=== PATIENT | male | born 1965 | race Two or more races ===

== ENCOUNTER 2018-11-25 15:27 | Inpatient (IN) | payer MEDICAID, OTHER ==
[~2018-11-25] VITALS: Ht 175.3 cm; Wt 64.6 kg
[2018-11-25 18:00] VITALS: BP 113/71
--- NOTE | 2018-11-25 18:00 | NUR ---
IMMERSION METALCLEANER NOTES PATIENT DIRECT ADMIT FROM [facility] 54 Y/OLD MALE TELE ON Dx. OF GI BLEEDING. TELE MONITOR ON SR98. PATIENT A/O X4, NO ACUTE RESPIRATORY DISTRESS. PATIENT REFUSED PAIN AT THIS TIME. AMBULATORY SELF CARE. PATIENT DENIED NAUSEA/VOMITING. V/S TAKEN BP 131/71, P-100, R-18, T-98.6, O2-100 ROOM AIR. IV ACCESS ON LEFT HAND #20 GAUGE. SKIN ASSESSMENT DONE PICTURE TAKEN. NEEDS ATTENDED AND ANTICIPATED. CALL LIGHT WITHIN TO REACH. DIXON MONZON AWARE OF NEW PATIENT AND MEDICATION. CONTINUED MONITORING.
--- NOTE | 2018-11-25 18:30 | NUR ---
rn notes endorsed oncoming nurse follow plan of care.
--- NOTE | 2018-11-25 19:32 | NUR ---
RN OPENING NOTES RECEIVED PATIENT AWAKE, RESTING COMFORTABLY IN BED. PATIENT IS A/O X 4. IRISH SPEAKING. NO SIGNS OF RESPIRATORY DISTRESS. PATIENT DENIES SOB. PATIENT DENIES PAIN OR DISCOMFORT AT THIS TIME. IV SITE PATENT AND INTACT. ON ROOM AIR. SAFETY PRECAUTIONS IMPLEMENTED. CALL LIGHT WITHIN REACH. WILL CONTINUE TO MONITOR PATIENT.
[2018-11-25 20:00] VITALS: BP 116/67
--- NOTE | 2018-11-25 22:59 | NUR ---
RN NOTES PATIENT STATES HE DOES NOT TAKE ANY HOME MEDICATIONS. HE DOES NOT RECALL ANY MEDICATIONS TAKEN REGULARLY. PATIENT IS A/O X 4.
--- NOTE | 2018-11-25 23:13 | NUR ---
RN NOTES AWAITING ORDERS FOR PATIENT. AWARE.
[2018-11-26] VITALS: BP 119/78
[2018-11-26] MEDS ORDERED: ACETAMINOPHEN 325 MG TABLET PO PRN
[2018-11-26] MEDS ORDERED: MAG HYDROX/AL HYDROX/SIMETH 30 ML UDC PO PRN
[2018-11-26] MEDS ORDERED: ONDANSETRON HCL/PF 4 MG/2 ML VIAL IVP PRN
[2018-11-26] MEDS ORDERED: MAGNESIUM HYDROXIDE 30 ML UDC PO PRN
[2018-11-26] MEDS ORDERED: HYDROCODONE/APAP 5/325MG 1 EACH TABLET PO PRN
[2018-11-26] MEDS ORDERED: ZOLPIDEM TARTRATE 5 MG TABLET PO PRN
[2018-11-26] MEDS ORDERED: Z GUARD REMEDY 2 OZ OINT TP PRN
[2018-11-26] MEDS: IV D5/0.45 NACL 1,000 ML IV PRN ×2 (00:39→22:19)
[2018-11-26] MEDS ORDERED: PANTOPRAZOLE 80 MG in IV NS 0.9% 500 ML IV PRN (01:00)
[2018-11-26] MEDS ORDERED: OCTREOTIDE 1,250 MCG in IV NS 0.9% 247.5 ML IV PRN (01:00)
[2018-11-26] MEDS: PROPRANOLOL HCL 10 MG TABLET PO SCH ×3 (02:34→21:10)
[2018-11-26 02:35] VITALS: BP 132/85
--- NOTE | 2018-11-26 02:38 | NUR ---
RN NOTES PATIENT REFUSED PROPANOLOL LAST MINUTE. DISCUSSED WITH PATIENT THE RISKS AND BENEFITS OF NOT TAKING MEDICATION. LAST VITALS PRIOR TO SCANNING MEDICATION: BP 132/85, PULSE 90, O2 SAT 99%, RR 18, TEMP 98.6. WILL CONTINUE TO MONITOR PATIENT.
[2018-11-26 04:00] VITALS: BP 127/73
--- NOTE | 2018-11-26 06:19 | NUR ---
RN CLOSING NOTES PATIENT IS AWAKE IN BED, RESTING COMFORTABLY. PATIENT IS A/O X 4. NO SIGNS OF RESPIRATORY DISTRESS. DENIES SOB. PATIENT DENIES ANY PAIN OR DISCOMFORT AT THIS TIME. PATENT HAS NO COMPLAINTS OF NAUSEA OR VOMITING. PATIENT IS AMBULATORY. PATIENT ABLE TO VERBALIZE HE VOIDED TWICE LAST NIGHT VIA TOILET. PATIENT IS NPO. PATIENT IS AWARE OF DIET STATUS. IV ACCESS PATENT AND INTACT. CURRENT TELEMETRY READING WAS SINUS RHYTHM 85. ALL NEEDS ATTENDED TO. SAFETY PRECAUTIONS IMPLEMENTED. CALL LIGHT WITHIN REACH. WILL ENDORSE TO AM SHIFT FOR CONTINUITY OF CARE.
[2018-11-26 07:03] LABS: CALCIUM, SERUM 7.8 mg/dL (8.5-10.1); CREATININE 0.8 mg/dL (0.6-1.3); MAGNESIUM 1.7 mg/dL (1.8-2.4); PHOSPHORUS 4.2 mg/dL (2.5-4.9); POTASSIUM 3.4 mmol/L (3.5-5.1)
[2018-11-26 07:16] LABS: BASOPHILS % (AUTO) 0.8 % (0.0-2.0); EOSINOPHILS % (AUTO) 4.2 % (0.0-6.0); HEMATOCRIT 25 % (39-51); HEMOGLOBIN 8.4 g/dL (13.5-17.5); LYMPHOCYTES # (AUTO) 1.2 /CMM (0.8-4.8); MEAN CORPUSCULAR HGB CONC 34 g/dl (31.0-36.0); MEAN CORPUSCULAR VOLUME 85 fL (80-96); MONOCYTES # (AUTO) 0.4 /CMM (0.1-1.30); MONOCYTES % (AUTO) 14.8 % (2.0-12.0); NEUTROPHILS % (AUTO) 36.2 % (43.0-81.0); RED BLOOD CELL COUNT(AUTO) 2.94 MIL/uL (4.5-6.0); WHITE BLOOD COUNT (AUTO) 2.8 K/uL (4.3-11.0)
[2018-11-26 07:27] LABS: PLATELET COUNT (AUTO) 45 /CMM (150-450)
--- NOTE | 2018-11-26 07:30 | NUR ---
membership counselor Opening Note Patient currently resting in bed with eyes closed in Semi-Fowlers position, no acute distress noted. Easily arousable to verbal stimuli. Alert and oriented to x 4. Respirations even and unlabored on room air. External youth nutritional monitor in place: current rhythm normal sinus at 88 bpm. Peripheral IV access to the right hand 20 gauge, intact, patent and infusing D5 0.45% NS at 75 ml/hr. as ordered. No bleeding noted. NPO since midnight pending GI consult. Safety and fall precautions in place: bed in lowest and locked position, side rails up x2, bed alarm on, call light and personal possessions in reach, room well lit, floor clutter-free. Updated patient on plan of care, verbalized understanding. Patient currently clean, dry and comfortable.Will continue to monitor and intervene as needed.
[2018-11-26 08:00] VITALS: BP 134/78
[2018-11-26 08:35] LABS: BAND % (MANUAL) 1 % (0.0-5.0); EOSINOPHILS % (MANUAL) 6 % (0-4); LYMPHOCYTES % (MANUAL) 41 % (16-48); MONOCYTES % (MANUAL) 6 % (0-11.0); NEUTROPHILS % (MANUAL) 46 (42-76)
[2018-11-26] MEDS: NEXIUM 40 MG VIAL IV SCH ×2 (09:17→21:10)
[2018-11-26] MEDS ORDERED: POTASSIUM CL. PREMIX PERIPHER. 50 ML IV SCH (09:33)
[2018-11-26] MEDS ORDERED: METOCLOPRAMIDE HCL 10 MG/2 ML VIAL IV STA (09:43)
--- NOTE | 2018-11-26 10:52 | NUR ---
weather reporter Notes Per Dr. Barrera, patient to have EGD procedure at 11:00 AM. Patient NPO since midnight. Informed consent obtain for anethesia and procedure, signed and placed in chart. Type and Screen completed, pre-operative checklist completed. Pre-operative medication ordered by given as ordered. Per Pharmacy, pre-operative medication of Erythromycin unavailable to give. Noted and informed pre-op nurse during report. Report given to staff per protocol, patient transferred to operating room in stable condition.
[2018-11-26] MEDS ORDERED: ERYTHROMYCIN 250 MG in IV NS 0.9% 100 ML IV ONE ×4 (11:00)
[2018-11-26 12:00] VITALS: BP 133/78
[2018-11-26] MEDS ORDERED: CEFTRIAXONE 1 G VIAL IV SCH (12:00)
--- NOTE | 2018-11-26 12:00 | NUR ---
final canoe inspector Note Patient returned from OR via bed in stable condition. Report from PACU staff per protocol, vital signs stable. New orders noted. Will continue to monitor.
[2018-11-26] MEDS: Magnesium 1GM/D5W 100ML PREMIX 100 ML IV SCH ×2 (12:24→13:50)
[2018-11-26] MEDS: CEFTRIAXONE 1 G in IV D5W 50 ML IV SCH (13:28)
--- NOTE | 2018-11-26 18:30 | NUR ---
accredited legal secretary Closing Note Patient currently resting in bed with eyes closed in Semi-Fowlers position, no acute distress noted. Easily arousable to verbal stimuli. Alert and oriented to x 4. Respirations even and unlabored on room air. External networking technology instructor in place: current rhythm sinus tachycardia at 102 bpm. Peripheral IV access to the right hand 20 gauge, intact, patent and infusing D5 0.45% NS at 75 ml/hr as ordered. No bleeding noted. Clear liquid diet began today. Safety and fall precautions in place: bed in lowest and locked position, side rails up x2, bed alarm on, call light and personal possessions in reach, room well lit, floor clutter-free. Updated patient on plan of care, verbalized understanding. Patient currently clean, dry and comfortable. No acute events this shift. Will endorse to AVIS Cantor for continuity of care.
--- NOTE | 2018-11-26 19:30 | NUR ---
RN NOTES RECEIVED PT. AWAKE O BED, A/OX4, ST ON TELE MONITOR HR-104, GABY PAIN, NO SOB, CALL LIGHT WITHIN REACH, [id number], CONTINUE TO MONITOR
[2018-11-26 20:00] VITALS: BP 126/78
[2018-11-27] VITALS: BP 124/80
[2018-11-27 04:00] VITALS: BP 137/73
--- NOTE | 2018-11-27 06:46 | NUR ---
RN NOTES AWAKE, DENIES PAIN, NO SOB, MORNING CARE RENDERED, CALL LIGHT WITHIN REACH, [id number], PT. NEEDS ATTENDED
[2018-11-27 06:58] LABS: CREATININE 0.9 mg/dL (0.6-1.3); MAGNESIUM 1.8 mg/dL (1.8-2.4); POTASSIUM 3.8 mmol/L (3.5-5.1)
--- NOTE | 2018-11-27 07:30 | NUR ---
community organization director Opening Note Patient currently resting in bed with eyes closed in Semi-Fowlers position, no acute distress noted. Easily arousable to verbal stimuli. Alert and oriented to x 4. Respirations even and unlabored on room air. External monitoring coordinator in place: current rhythm sinus tachycardia at 100 bpm. Peripheral IV access to the right hand 20 gauge, intact, patent and infusing D5 0.45% NS at 75 ml/hr and Sandostatin as ordered. No bleeding noted. Tolerating clear liquid diet began today. Safety and fall precautions in place: bed in lowest and locked position, side rails up x2, bed alarm on, call light and personal possessions in reach, room well lit, floor clutter-free. Updated patient on plan of care, verbalized understanding. Patient currently clean, dry and comfortable. Will continue to monitor patient and intervene as needed.
[2018-11-27 08:00] VITALS: BP 142/76
[2018-11-27 08:22] LABS: BASOPHILS % (AUTO) 0.8 % (0.0-2.0); EOSINOPHILS % (AUTO) 3.6 % (0.0-6.0); HEMATOCRIT 27 % (39-51); LYMPHOCYTES # (AUTO) 1.2 /CMM (0.8-4.8); LYMPHOCYTES % (AUTO) 34.8 % (20.0-44.0); MEAN CORPUSCULAR HGB CONC 34 g/dl (31.0-36.0); MEAN CORPUSCULAR VOLUME 85 fL (80-96); MONOCYTES # (AUTO) 0.5 /CMM (0.1-1.30); MONOCYTES % (AUTO) 14.5 % (2.0-12.0); NEUTROPHILS # (AUTO) 1.6 /CMM (1.8-8.9); NEUTROPHILS % (AUTO) 46.3 % (43.0-81.0); PLATELET COUNT (AUTO) 51 /CMM (150-450); RED BLOOD CELL COUNT(AUTO) 3.14 MIL/uL (4.5-6.0); WHITE BLOOD COUNT (AUTO) 3.6 K/uL (4.3-11.0)
--- NOTE | 2018-11-27 08:30 | NUR ---
x ray consultant Note Seen and examined bedside by Dr. Britt. Pending clearance from GI consult.
[2018-11-27 09:26] VITALS: BP 142/76
[2018-11-27] MEDS: PROPRANOLOL HCL 10 MG TABLET PO SCH (09:26)
[2018-11-27] MEDS: NEXIUM 40 MG VIAL IV SCH (09:26)
[2018-11-27 11:39] LABS: BAND % (MANUAL) 1 % (0.0-5.0); LYMPHOCYTES % (MANUAL) 36 % (16-48); NEUTROPHILS % (MANUAL) 51 (42-76)
[2018-11-27 11:40] LABS: EOSINOPHILS % (MANUAL) 1 % (0-4); MONOCYTES % (MANUAL) 11 % (0-11.0)
[2018-11-27] MEDS: CEFTRIAXONE 1 G in IV D5W 50 ML IV SCH (12:00)
--- NOTE | 2018-11-27 15:31 | NUR ---
MS curriculum and assessment director Note Patient cleared for discharge from hospitalist and GI consults. Patient currently resting in bed with eyes open in Semi-Fowlers position, no acute distress noted. Easily arousable to name. Alert and oriented to self, responsive to verbal and tactile stimuli. Respirations even and unlabored on room air. Patient refused skin assessment completed upon discharge. Peripheral IV access to the left hand 20 gauge, removed with catheter tip intact. No redness, swelling or bleeding of the site noted. ID bands removed. Exitcare and discharge instructions given to spouse, verbalized understanding and acknowledged via signature on form. Discharged with all personal belongings and home medications, as noted per form, given to patient. Discharged home in medically stable condition with family (brother) stable condition, family present for discharge. Escorted by CE Deluna, ambulates with steady gait, to [facility].
== END 2018-11-27 15:30 | disposition home or self-care (01) | DRG 241 ==
LOC: TELE 17:23 → MED 11-27 09:31
PROVIDERS: ADMIT Student in an Organized Health Care Education/Training Program; ATTEND Internal Medicine
PROC: 0DJ08ZZ Inspection of Upper Intestinal Tract, Via Natural or Artificial Opening Endoscopic (ICD-10-PCS; principal; 2018-11-26)
DX: K25.4 Chronic or unspecified gastric ulcer with hemorrhage (principal); I85.11 Secondary esophageal varices with bleeding; D69.6 Thrombocytopenia, unspecified; K76.6 Portal hypertension; K70.31 Alcoholic cirrhosis of liver with ascites; D62 Acute posthemorrhagic anemia; K31.89 Other diseases of stomach and duodenum; K40.90 Unilateral inguinal hernia, without obstruction or gangrene, not specified as recurrent; M70.52 Other bursitis of knee, left knee; M54.30 Sciatica, unspecified side; B18.2 Chronic viral hepatitis C; F10.10 Alcohol abuse, uncomplicated; Z87.11 Personal history of peptic ulcer disease
CPT/HCPCS: 36415; 80048-TC; 80061-TC; 83735-TC; 84100-TC; 85025-TC; 85610-TC; 86850-TC; 87081-TC; G0378; J0696; J1364; J2354; J2405; J2704; J2765; J3475; J3480; J3490; J7030; J7040; J7050; J7060